=== PATIENT | male | born 1940 | race Caucasian/White ===

== ENCOUNTER 2016-09-09 22:20 | Observation (INO) | payer MEDICARE, BC ==
[~2016-09-09 22:20] MED LIST: ACYCLOVIR400 M1 PO; ACYCLOVIR400 MG PO; ALEVE220 M1 PO; ALEVE220 M3 PO; ALEVE220 M4 PO; ATENOLOL100 MG PO; AVODART0.5 M1 PO; BRILINTA90 M1 PO; CALCIUM CITRAT200 MG PO; CO Q-10100 M2 PO; COLACE100 M1 PO; COUMADIN4 M1 PO; COUMADIN5 M2 PO; CVS LUTEIN 401 EACH PO; DOXAZOSIN MESYLA8 MG PO; FISH OIL PO; GABAPENTIN300 M1 PO; GINKO BILOBA; GLUCOTEN CAPLE1 EACH PO; HYDROCHLOROTHIA25 M1 PO; HYZAAR 100-251 EACH PO; HYZAAR PO; LYRICA PO; MAGNESIUM250 M2 PO; MULTI VITAMIN1 EAC1 PO; NYAMYC15 GM TP; OLIVE LEAF PO; PACERONE200 M1 PO; POLICOSANOL-GA1 EACH PO; POTASSIUM-9999 MG PO; POTASSIUM99 M4 PO; PRILOSEC20 M1 PO; PRILOSEC20 MG PO; SAW PALMETTO160 MG PO; TENORMIN100 M1 PO; TENORMIN50 M1 PO; TYLENOL325 M2 PO; ULTRAM50 M1 PO; VITAMIN D31000 UNIT PO; ZYRTEC1010 PO; [UNRECOGNIZED DRUG - OTHER]; [UNRECOGNIZED DRUG - OTHER] PO; [UNRECOGNIZED DRUG - OTHER] PO; [UNRECOGNIZED DRUG - OTHER] PO
[2016-09-09 23:27] LABS: BASO % 0.4 % (0-2); EOS % 1.2 % (0-7); EOSINOPHIL ABSOLUTE COUNT 0.1 tho/cmm (0.0-0.7); HCT-HEMATOCRIT 38.9 % (36.0-53.5); HGB-HEMOGLOBIN 13.3 gm/dl (13.5-17.0); IMMATURE GRANULOCYTES ABSOLUTE 0.02 tho/cmm (0-0.03); IMMATURE GRANULOCYTES PERCENT 0.4 % (0-0.3); LYMPH % 12.1 % (20-45); LYMPH ABSOLUTE COUNT 0.6 tho/cmm (0.8-4.5); MCH (MEAN CORPUSCULAR HGB) 30.7 pg (28.0-32.0); MCHC MEAN CORPUSCULAR HGB CONC 34.2 % (32.0-36.0); MCV (MEAN CELL VOLUME) 89.8 fl (82.0-96.0); MEAN PLATELET VOLUME 9.6 cmc (9.4-12.4); MONOCYTE ABSOLUTE COUNT 0.4 tho/cmm (0.0-1.2); NEUTROPHILS % 77.9 % (40-80); PLATELET COUNT 115 tho/cmm (150-450); RED BLOOD COUNT 4.33 mil/cmm (4.40-5.70); WHITE BLOOD COUNT 5.1 tho/cmm (4.0-10.0)
[2016-09-09 23:31] LABS: INR 3.3 INR (0.9-1.1); PROTHROMBIN TIME 39.6 SECONDS (9.0-13.6)
[2016-09-09 23:50] LABS: ALB/GLOB RATIO 0.7 (0.8-2.0); ALBUMIN 3.4 g/dl (3.5-5.0); ALKALINE PHOSPHATASE 102 U/L (33-138); ALT/SGPT 58 U/L (12-78); ANION GAP 15 mmol/L (0-20); AST/SGOT 67 U/L (10-40); BILIRUBIN,TOTAL 0.6 mg/dl (0.0-1.5); BLOOD UREA NITROGEN 19 mg/dl (6-24); CALCIUM 8.7 mg/dl (8.5-10.5); CARBON DIOXIDE-VENOUS 26 mmol/L (22-32); CHLORIDE 101 mmol/l (96-110); CREATININE 0.59 mg/dl (0.60-1.30); GLUCOSE 115 mg/dL (70-110); POTASSIUM 3.6 mmol/L (3.7-5.1); SODIUM 138 mmol/L (135-145); eGFR VALUE FOR BLACK >90 mL/Min
[2016-09-10 00:13] LABS: URINE BILIRUBIN NEGATIVE (NEG); URINE BLOOD SMALL (NEG); URINE GLUCOSE (UA) NEGATIVE (NEG); URINE KETONE NEGATIVE (NEG); URINE LEUKOCYTE ESTERASE POSITIVE (NEG); URINE NITRITE POSITIVE (NEG); URINE PROTEIN SMALL (NEG); URINE SPECIFIC GRAVITY 1.015 (1.003-1.030)
[2016-09-10 00:18] LABS: URINE APPEARANCE CLOUDY; URINE COLOR YELLOW
[2016-09-10 00:20] LABS: URINE WBC 25-35 /[HPF] (0-5)
[2016-09-10 00:21] LABS: URINE BACTERIA 1+
[2016-09-10 02:42] LABS: MAGNESIUM 1.5 mg/dl (1.8-2.6)
[2016-09-10 03:35] LABS: BASO % 0.2 % (0-2); EOS % 1.1 % (0-7); EOSINOPHIL ABSOLUTE COUNT 0.1 tho/cmm (0.0-0.7); HCT-HEMATOCRIT 35.4 % (36.0-53.5); HGB-HEMOGLOBIN 11.9 gm/dl (13.5-17.0); IMMATURE GRANULOCYTES ABSOLUTE 0.01 tho/cmm (0-0.03); IMMATURE GRANULOCYTES PERCENT 0.2 % (0-0.3); LYMPH % 16.7 % (20-45); LYMPH ABSOLUTE COUNT 1.1 tho/cmm (0.8-4.5); MCH (MEAN CORPUSCULAR HGB) 30.5 pg (28.0-32.0); MCHC MEAN CORPUSCULAR HGB CONC 33.6 % (32.0-36.0); MCV (MEAN CELL VOLUME) 90.8 fl (82.0-96.0); MEAN PLATELET VOLUME 9.5 cmc (9.4-12.4); MONO % 6.3 % (0-12); MONOCYTE ABSOLUTE COUNT 0.4 tho/cmm (0.0-1.2); NEUTROPHILS % 75.5 % (40-80); PLATELET COUNT 112 tho/cmm (150-450); RED CELL DISTRIBUTION WIDTH 14.3 % (12.4-16.4); WHITE BLOOD COUNT 6.7 tho/cmm (4.0-10.0)
[2016-09-10 03:37] LABS: INR 3.4 INR (0.9-1.1); PROTHROMBIN TIME 40.6 SECONDS (9.0-13.6)
[2016-09-10 03:44] LABS: ANION GAP 13 mmol/L (0-20); BLOOD UREA NITROGEN 17 mg/dl (6-24); CARBON DIOXIDE-VENOUS 28 mmol/L (22-32); CHLORIDE 107 mmol/l (96-110); CREATININE 0.51 mg/dl (0.60-1.30); GLUCOSE 117 mg/dL (70-110); POTASSIUM 3.6 mmol/L (3.7-5.1); SODIUM 144 mmol/L (135-145); eGFR VALUE FOR BLACK >90 mL/Min
[2016-09-11 06:16] LABS: BASO % 0.4 % (0-2); EOSINOPHIL ABSOLUTE COUNT 0.2 tho/cmm (0.0-0.7); HCT-HEMATOCRIT 36.3 % (36.0-53.5); HGB-HEMOGLOBIN 12.5 gm/dl (13.5-17.0); IMMATURE GRANULOCYTES ABSOLUTE 0.01 tho/cmm (0-0.03); IMMATURE GRANULOCYTES PERCENT 0.2 % (0-0.3); LYMPH % 46.7 % (20-45); LYMPH ABSOLUTE COUNT 2.1 tho/cmm (0.8-4.5); MCH (MEAN CORPUSCULAR HGB) 30.9 pg (28.0-32.0); MCHC MEAN CORPUSCULAR HGB CONC 34.4 % (32.0-36.0); MCV (MEAN CELL VOLUME) 89.9 fl (82.0-96.0); MEAN PLATELET VOLUME 9.8 cmc (9.4-12.4); MONO % 5.8 % (0-12); MONOCYTE ABSOLUTE COUNT 0.3 tho/cmm (0.0-1.2); NEUTROPHIL ABSOLUTE COUNT 1.9 tho/cmm (1.6-8.0); NEUTROPHIL-AUTOMATED 1.9 tho/cmm (1.6-8.0); NEUTROPHILS % 42.9 % (40-80); PLATELET COUNT 125 tho/cmm (150-450); RED BLOOD COUNT 4.04 mil/cmm (4.40-5.70); RED CELL DISTRIBUTION WIDTH 14.3 % (12.4-16.4); WHITE BLOOD COUNT 4.5 tho/cmm (4.0-10.0)
[2016-09-11 06:35] LABS: INR 2.1 INR (0.9-1.1); PROTHROMBIN TIME 24.5 SECONDS (9.0-13.6)
[2016-09-11] MEDS ORDERED: KEFLEX500 M4 PO (11:52)
== END 2016-09-11 14:25 ==
LOC: EDMED 22:20 → EMR2 09-10 00:56 → CAR1 09-10 01:47 → 5WD 09-10 18:13
PROVIDERS: Emergency Medicine; Hospitalist; Registered Nurse; ADMIT Hospitalist
DX: N39.0 Urinary tract infection, site not specified (principal); B95.8 Unspecified staphylococcus as the cause of diseases classified elsewhere; R53.1 Weakness; G72.41 Inclusion body myositis [IBM]; D69.6 Thrombocytopenia, unspecified; K59.00 Constipation, unspecified; R73.9 Hyperglycemia, unspecified; E87.6 Hypokalemia; I10 Essential (primary) hypertension; R13.10 Dysphagia, unspecified; I48.91 Unspecified atrial fibrillation; I25.10 Atherosclerotic heart disease of native coronary artery without angina pectoris; G92 Toxic encephalopathy; Z79.01 Long term (current) use of anticoagulants; Z79.1 Long term (current) use of non-steroidal anti-inflammatories (NSAID); Z79.899 Other long term (current) drug therapy; Z88.1 Allergy status to other antibiotic agents; Z88.2 Allergy status to sulfonamides; Z88.8 Allergy status to other drugs, medicaments and biological substances; Z91.041 Radiographic dye allergy status; Z85.828 Personal history of other malignant neoplasm of skin; Z87.891 Personal history of nicotine dependence; Z90.89 Acquired absence of other organs; Z95.5 Presence of coronary angioplasty implant and graft; Z98.1 Arthrodesis status; Z98.890 Other specified postprocedural states
CPT/HCPCS: G0378; G8978-GP-CL; G8979-GP-CL; G8980-GP-CL; G8987-GO-CK; G8988-GO-CJ; G8989-GO-CK; J0696; J7030; J7050